=== PATIENT | male | born 1980 | race Hispanic/Latino ===

== ENCOUNTER 2021-12-15 12:34 | Inpatient (IN) | payer OTHER ==
[~2021-12-15] VITALS: Ht 177.8 cm; Wt 76.7 kg
[2021-12-15] MEDS ORDERED: PANTOPRAZOLE 40MG INJ 80 MG in 0.9%NACL 100ML 100 ML IVP SCH ×2 (13:00→20:00)
[2021-12-15] MEDS ORDERED: PANTOPRAZOLE 40 MG/VIAL IVP ONE (13:00)
[2021-12-15] MEDS ORDERED: 0.9%NACL 1000ML 1,000 ML IV ONE (13:00)
[2021-12-15] MEDS ORDERED: ONDANSETRON 4MG INJ IVP ONE (13:00)
[2021-12-15 13:09] LABS: BASOPHILS % (AUTO) 0.3 % (0.0-5.0); EOSINOPHILS % (AUTO) 0.5 % (0.0-8.0); HEMATOCRIT 39.3 % (42-54); LYMPHOCYTES % (AUTO) 22.6 % (21.0-51.0); MEAN CORPUSCULAR HGB CONC 32.8 g/dL (32.0-36.0); MEAN CORPUSCULAR VOLUME 88.3 fL (79-99); MONOCYTES % (AUTO) 7.7 % (3.0-13.0); NEUTROPHILS % (AUTO) 68.5 % (40.0-77.0); PLATELET COUNT (AUTO) 266 K/uL (130-400); RED BLOOD CELL COUNT(AUTO) 4.45 MIL/uL (4.50-6.20); RED CELL DISTRIBUTION WIDTH 12.6 % (11.0-15.5); WHITE BLOOD COUNT (AUTO) 7.4 K/uL (4.8-10.8)
[2021-12-15 13:25] LABS: INR 1.01 (0.85-1.15)
[2021-12-15 13:26] LABS: PARTIAL THROMBOPLASTIN TIME 26.3 SEC (26.3-35.5)
[2021-12-15 13:28] LABS: CREATININE 1.1 mg/dL (0.5-1.5); POTASSIUM 4.6 mmol/L (3.5-5.1)
[2021-12-15 13:33] LABS: ALBUMIN 3.2 g/dL (3.5-5.0); TOTAL PROTEIN, SERUM 7.2 g/dL (6.0-8.3)
[2021-12-15] MEDS ORDERED: ONDANSETRON 4MG INJ IV PRN (19:30)
[2021-12-15] MEDS ORDERED: CEFTRIAXONE 1G VIAL IV SCH (19:30)
[2021-12-15] MEDS: 0.9%NACL 1000ML 1,000 ML IV SCH (19:49)
[2021-12-15 20:59] LABS: AMPHET/METH SCREEN,URINE NEGATIVE (NEGATIVE); BARBITURATE SCREEN, URINE NEGATIVE (NEGATIVE); BENZODIAZEPINES SCREEN,URINE NEGATIVE (NEGATIVE); CANNABINOID SCREEN,URINE NEGATIVE (NEGATIVE); COCAINE SCREEN,URINE NEGATIVE (NEGATIVE); PHENCYCLIDINE SCREEN,URINE NEGATIVE (NEGATIVE)
[2021-12-15 21:13] LABS: HEMATOCRIT 33.1 % (42-54)
[2021-12-15 21:26] LABS: RETICULOCYTE % (AUTO) 2.08 % (0.42-2.23)
[2021-12-15 21:47] LABS: MAGNESIUM 1.8 mg/dL (1.80-2.40); PHOSPHORUS 2.6 mg/dL (2.5-4.9); THYROID STIMULATING HORMONE 0.15 uIU/mL (0.36-3.74)
[2021-12-15 23:39] VITALS: BP 123/67
[2021-12-16] VITALS (11 sets, daily range): BP systolic 102–126; BP diastolic 51–82
[2021-12-16] MEDS: 0.9%NACL 1000ML 1,000 ML IV SCH (06:07)
[2021-12-16] MEDS ORDERED: PANTOPRAZOLE 40MG INJ 80 MG in 0.9%NACL 100ML 100 ML IV SCH (09:00)
[2021-12-16 09:02] LABS: HEMATOCRIT 32.9 % (42-54)
[2021-12-16 09:13] LABS: CREATININE 1.1 mg/dL (0.5-1.5); POTASSIUM 4.2 mmol/L (3.5-5.1)
[2021-12-16] MEDS ORDERED: PROPOFOL 10 MG/ML 20ML VIAL IV ONE ×3 (10:22→10:51)
[2021-12-16] MEDS ORDERED: FENTANYL CITRATE PF 50 MCG/1 ML 2ML VIAL ONE (10:22)
[2021-12-16] MEDS ORDERED: LIDOCAINE PF 100MG/5ML (2%) SYRINGE 5ML ONE (10:23)
[2021-12-16 10:39] LABS: HEMOGLOBIN A1C 5.9 % (4.0-6.0)
[2021-12-16] MEDS ORDERED: PANT40TA PO (12:54)
[2021-12-16] MEDS ORDERED: METO25TA3 PO (12:54)
[2021-12-16] MEDS ORDERED: METOPROLOL SUCCINATE 25 MG TAB.SR.24H PO SCH ×2 (13:00)
[2021-12-17] MEDS ORDERED: PANTOPRAZOLE 40 MG TAB DR PO SCH (09:00)
== END 2021-12-16 19:54 | disposition home or self-care (01) | DRG 378 ==
LOC: EDH 12:34 → EDHIP 12:35 → 2AH 22:50
PROVIDERS: ADMIT Internal Medicine; ATTEND Internal Medicine
PROC: 0DB68ZX Excision of Stomach, Via Natural or Artificial Opening Endoscopic, Diagnostic (ICD-10-PCS; principal; 2021-12-16)
DX: K29.71 Gastritis, unspecified, with bleeding (principal); D62 Acute posthemorrhagic anemia; Z20.822 Contact with and (suspected) exposure to COVID-19
CPT/HCPCS: 36415; 43239; 71045; 80048; 80053; 80305; 82140; 82728; 82746; 83036; 83540; 83550; 83735; 84100; 84439; 84443; 84481; 85014; 85018; 85025; 85045; 85610; 85730; 86850; 86900; 86901; 87635; 93005; C9113; G0378; J0696; J2001; J2405; J2704; J3010; J7030